=== PATIENT | male | born 1940 | race Caucasian/White ===

== ENCOUNTER → 2021-09-25 08:19 | Outpatient (CLI) | payer MEDICARE, OTHER, SELFPAY ==
[2021-09-25 20:52] LABS: COVID19 - ORCAS (NP or Nasal) Negative (Negative)
== END ==
PROVIDERS: PCP Family Medicine; Referring Provider Family Medicine; Visit Provider Family Medicine
DX: Z20.822 Contact with and (suspected) exposure to COVID-19 (principal)
CPT/HCPCS: C9803; U0003

== ENCOUNTER → 2022-04-23 12:13 | Outpatient (CLI) | payer MEDICARE, OTHER, SELFPAY ==
--- NOTE | 2022-04-23 12:14 | DI.US.S_ITS ---
PROCEDURE: US ABDOMEN LIMITED INDICATIONS: LEFT INGUINAL PAIN; HX RIGHT INGUINAL HERNIA TECHNIQUE: Real-time focused scanning was performed of the abdomen, with image documentation. Color Doppler was also utilized. COMPARISON: None. FINDINGS: At the area of clinical concern within the left inguinal region, there is an apparent hernia with bowel contents that measures 2.5 x 1.6 x 4.5 cm. The hernia orifice measures 1 cm. No abnormal vascularity can be seen. IMPRESSION: Likely bowel containing hernia at the site of clinical concern. Please consider a follow-up CT through the region for further evaluation. Please consider surgical referral. Dictated by: Abhilash Cronin M.D. on 04/23/2022 at 11:59 Approved by: Abhilash Cronin M.D. on 04/23/2022 at 12:00
== END ==
PROVIDERS: PCP Family Medicine; Referring Provider Physician Assistant Medical; Visit Provider Physician Assistant Medical
DX: R10.32 Left lower quadrant pain (principal)
CPT/HCPCS: 76705

== ENCOUNTER → 2022-05-12 11:17 | Outpatient (CLI) | payer MEDICARE, OTHER, SELFPAY ==
[2022-05-12 22:04] LABS: Prostate Specific Antigen < 0.064 ng/mL (0.10-4.00)
== END ==
PROVIDERS: PCP Family Medicine; Visit Provider Specialist
DX: R97.20 Elevated prostate specific antigen [PSA] (principal)
CPT/HCPCS: 84153

== ENCOUNTER → 2022-06-01 13:05 | Outpatient (CLI) | payer MEDICARE, OTHER, SELFPAY ==
[2022-06-01 20:04] LABS: BUN Creatinine Ratio 30.9 (6-22); Blood Urea Nitrogen 29 mg/dL (9-20); Calcium 9.4 mg/dL (8.4-10.2); Carbon Dioxide 28 mmol/L (22-32); Chloride 103 mmol/L (98-107); Estimated Glomerular Filt Rate > 60 mL/min (>60); Glucose 131 mg/dL (80-110); HEMOLYSIS < 15 (0-50); Potassium 4.4 mmol/L (3.4-5.1); Sodium 137 mmol/L (137-145)
== END ==
PROVIDERS: PCP Family Medicine; Visit Provider Specialist
DX: N40.0 Benign prostatic hyperplasia without lower urinary tract symptoms (principal)
CPT/HCPCS: 80048

== ENCOUNTER → 2022-06-03 13:04 | Outpatient (CLI) | payer MEDICARE, OTHER, SELFPAY ==
--- NOTE | 2022-06-03 13:06 | DI.CT.S_ITS ---
PROCEDURE: CT PELVIS W CON INDICATIONS: Possible inguinal hernia TECHNIQUE: After the administration of oral contrast and intravenous contrast, 5 mm thick sections acquired from the iliac crests to the symphysis. 5 mm thick coronal and sagittal reformats were acquired. For radiation dose reduction, the following was used: automated exposure control, adjustment of mA and/or kV according to patient size. COMPARISON: [facility], , US ABDOMEN LIMITED, 04/23/2022, 12:33. FINDINGS: Image quality: Excellent. Peritoneum and bowel: Contrast enhanced bowel loops demonstrate normal wall thickness and caliber. Normal appendix. No free fluid or air. Genitourinary: Large left bladder diverticulum, (2/34). Prostate gland is diminutive. Nodes and vessels: No iliac, pelvic, or inguinal adenopathy. Iliac vessels demonstrate normal size and enhancement. Tiny fat containing umbilical hernia. Bones: No suspicious bony lesions. Scoliosis. Moderate bilateral hip DJD. Miscellaneous: Suspect fat containing right inguinal hernia. Possible tiny fat containing left inguinal hernia. IMPRESSION: 1. Possible tiny fat containing left inguinal hernia. 2. Suspect fat containing right inguinal hernia. 3. Large left bladder diverticulum. Dictated by: Luis E Antonio M.D. on 06/03/2022 at 16:56 Approved by: Luis E Antonio M.D. on 06/03/2022 at 17:01
== END ==
PROVIDERS: PCP Family Medicine; Referring Provider Specialist; Visit Provider Specialist
DX: K40.90 Unilateral inguinal hernia, without obstruction or gangrene, not specified as recurrent (principal); R10.32 Left lower quadrant pain; N32.3 Diverticulum of bladder
CPT/HCPCS: 72193; Q9967

== ENCOUNTER → 2022-07-02 11:11 | Outpatient (CLI) | payer MEDICARE, OTHER, SELFPAY ==
[2022-07-02 19:31] LABS: Alanine Aminotransferase 16 IU/L (<50); Albumin 3.9 g/dL (3.5-5.0); Albumin Globulin Ratio 1.5 (1.0-2.8); Alkaline Phosphatase 59 U/L (38-126); Aspartate Aminotransferase 26 IU/L (17-59); BUN Creatinine Ratio 18.6 (6-22); Bilirubin Total 0.8 mg/dL (0.2-1.3); Blood Urea Nitrogen 18 mg/dL (9-20); Calcium 9.2 mg/dL (8.4-10.2); Carbon Dioxide 28 mmol/L (22-32); Chloride 101 mmol/L (98-107); Estimated Glomerular Filt Rate > 60 mL/min (>60); Globulin 2.6 g/dL (1.7-4.1); Glucose 99 mg/dL (80-110); HEMOLYSIS < 15 (0-50); Potassium 4.7 mmol/L (3.4-5.1); Sodium 137 mmol/L (137-145); Total Protein 6.5 g/dL (6.3-8.2)
== END ==
PROVIDERS: PCP Family Medicine; Visit Provider Physician Assistant Medical
DX: R73.9 Hyperglycemia, unspecified (principal); B35.1 Tinea unguium; M79.674 Pain in right toe(s)
CPT/HCPCS: 80053; 83036

== ENCOUNTER → 2023-01-18 13:44 | Outpatient (CLI) | payer MEDICARE, OTHER, SELFPAY ==
[2023-01-18 19:35] LABS: Add Manual Diff / Slide Review NO; Basophils Absolute Auto 0 /uL (0-100); Basophils Percent Auto 0.7 % (0-2); Eosinophils Absolute Auto 100 /uL (0-450); Eosinophils Percent Auto 2.1 % (2-4); Hematocrit 37.4 % (41-53); Hemoglobin 12.8 g/dL (13.5-17.5); Lymphocytes Absolute Auto 1500 /uL (1100-4500); Lymphocytes Percent Auto 26.4 % (25-40); Mean Corpuscular HGB Conc 34.3 % (30-36); Mean Corpuscular Hemoglobin 30.2 PG (26-34); Mean Corpuscular Volume 88.2 fL (80-100); Monocytes Absolute Auto 300 /uL (0-900); Monocytes Percent Auto 5.5 % (3-14); Neutrophils Absolute Auto 3600 /uL (1500-7000); Neutrophils Percent Auto 65.3 % (50-75); Platelet Count 251 X10^3/uL (150-400); Red Blood Cell Count 4.24 X10^6/uL (4.5-5.9); Red Cell Distribution Width 13.8 % (11.6-14.8); White Blood Cell Count 5.5 X10^3/uL (4.5-11.0)
[2023-01-18 19:46] LABS: Blood Urea Nitrogen 24 mg/dL (9-20); Calcium 9.1 mg/dL (8.4-10.2); Carbon Dioxide 27 mmol/L (22-32); Chloride 102 mmol/L (98-107); Estimated Glomerular Filt Rate > 60 mL/min (>60); Glucose 135 mg/dL (80-110); HEMOLYSIS < 15 (0-50); Potassium 4.5 mmol/L (3.4-5.1); Sodium 135 mmol/L (137-145)
[2023-01-18 19:51] LABS: INR 1.1 (0.9-1.3); Prothrombin Time 12.3 SECONDS (10.1-12.7)
== END ==
PROVIDERS: PCP Family Medicine; Visit Provider Family Medicine
DX: Z01.818 Encounter for other preprocedural examination (principal); K43.9 Ventral hernia without obstruction or gangrene
CPT/HCPCS: 80048; 85025; 85610

== ENCOUNTER → 2023-01-26 10:00 | Outpatient (CLI) | payer MEDICARE, OTHER, SELFPAY ==
[2023-01-29 15:08] LABS: Fecal Immunochemical Test Negative (Negative)
== END ==
PROVIDERS: PCP Family Medicine; Referring Provider Family Medicine; Visit Provider Family Medicine
DX: Z12.11 Encounter for screening for malignant neoplasm of colon (principal)
CPT/HCPCS: 82274

== ENCOUNTER 2023-02-16 11:00 | Day surgery (SDC) | payer MEDICARE, OTHER, SELFPAY ==
[2023-02-10 09:16] VITALS: BMI 25.5
[2023-02-16 11:09] VITALS: BMI 25.5
[2023-02-16 11:16] VITALS: BP 146/71; PULSE 58; RESP 17; TEMP 36.2; O2SAT 98
[2023-02-16] MEDS: LACTATED RINGERS 1,000 ML 120 ML IV (11:22)
--- NOTE | 2023-02-16 11:27 | P.HP_ITS ---
History of Present Illness History of Present Illness Date Patient Seen: 02/16/23 Time Patient Seen: 11:28 Chief complaint: Open Umbilical Hernia Repair w/mesh Narrative: Zach is here for his surgery. See office note from January for details. [facility] Medical History (Updated 02/16/23 @ 11:30 by David Alfredo MD) Benign prostatic hyperplasia Bladder diverticulum GERD (gastroesophageal reflux disease) Onychomycosis Sleep apnea (~2009) Surgical History (Updated 02/10/23 @ 09:20 by Genoveva Kendrick RN) H/O circumcision H/O hernia repair H/O transurethral resection of prostate (2013) History of urologic surgery (2016) Hx of tonsillectomy (1944) Family History Father Cancer Emphysema lung Social History marital status: number of children: 3 household members: spouse occupational status: other leisure activities: exercise Smoking Status: Never smoker alcohol intake: current caffeine: Yes Meds Home Medications and Allergies Home Medications Medication Instructions Recorded Confirmed Type ginkgo biloba 40 mg tablet 40 mg PO DAILY 05/13/22 02/16/23 History multivitamin 1 tab PO DAILY 05/13/22 02/16/23 History vit C 50 mg-E 15 unit-zinc cit 4.5 2 tab PO DAILY 05/13/22 02/16/23 History mg-lutein 2.5 mg-zeaxan chew tablet (OcAetel.inc (Droppy) [facility]) Allergies Allergy/AdvReac Type Severity Reaction Status Date / Time No Known Drug Allergies Allergy Verified 02/16/23 11:07 Exam Vital Signs (past 8 hours): - 02/16/23 11:16 Temperature 97.2 F L Pulse Rate 58 L Respiratory Rate 17 Blood Pressure 146/71 H Pulse Oximetry 98 Oxygen Delivery Method Room Air Oxygen Delivery Method Room Air Narrative Exam Narrative: There is a 1 cm reducible supraumbilical hernia Const General: healthy appearing Resp Effort & Inspection: normal respiratory effort Assessment & Plan Assessment and plan (1) Epigastric hernia: Status: Acute Plan Zach is here for his hernia repair. We reviewed the risks and benefits and he would like to proceed.
[2023-02-16] MEDS: CEFAZOLIN 2 GM/100 ML PREMIX 100 ML IV (11:47)
--- NOTE | 2023-02-16 12:02 | SUR.OPER ---
Supine on padded OR bed, head on pillow, arms secured on padded arm boards at <90 degrees abduction, legs uncrossed, safety belt at thigh, tape over blanket over lower legs.
[2023-02-16] MEDS: BUPIVACAINE 0.5% (PF) 30 ML, EPINEPHrine 0.15 MG INJ (12:08)
--- NOTE | 2023-02-16 12:17 | P.OP_ITS ---
Operative Date/Time/Diagnoses Date of procedure: 02/16/23 Time of procedure: 12:17 Pre-op diagnosis: Epigastric hernia Post-op diagnosis: same Procedure & Clinicians Procedure: Open epigastric hernia repair with mesh Same procedure as scheduled: Yes Surgeon: David Alfredo Operative Notes Procedure in detail: Ancef was administered. The patient was brought to the operating room, placed on the table in the supine position and general endotracheal anesthesia was induced. The abdomen was prepped and draped in the usual fashion. A time-out was performed. A 5 cm transverse incision was made just above the umbilicus. Dissection was carried down to the hernia and some preperitoneal fat was amputated with Bovie cautery and the stump allowed to fall back into the abdomen. The fascia was then closed with multiple interrupted 0 Ethibond sutures. The subcutaneous adipose tissue was cleared off of the anterior sheath circumferentially about 2 cm in each direction. A piece of polypropylene mesh was trimmed to fit over the fascial closure and secured with Tisseel. Once the Tisseel was dried the subcutaneous adipose tissue was closed with interrupted 3- 0 Vicryl sutures. The skin was closed with multiple interrupted 3-0 Vicryl dermal sutures followed by a running 4 Monocryl subcuticular closure. Dermabond and an abdominal binder was applied. Post-operative Disposition: PACU
[2023-02-16 12:30] VITALS: BP 141/69; PULSE 79; RESP 11; TEMP 36; O2SAT 95
[2023-02-16 12:34] VITALS: BP 131/67; PULSE 75; RESP 11; O2SAT 95
[2023-02-16 12:39] VITALS: BP 128/68; PULSE 74; RESP 15; O2SAT 95
[2023-02-16 12:45] VITALS: BP 139/71; PULSE 66; RESP 16; O2SAT 96
== END 2023-02-16 13:09 | disposition home or self-care (01) ==
PROVIDERS: PCP Family Medicine; Referring Provider Surgery; Visit Provider Surgery
PROC: (CPT 49593; principal; 2023-02-16 11:15)
DX: K43.9 Ventral hernia without obstruction or gangrene (principal)
CPT/HCPCS: 49593; J0171; J0690; J1100; J2405; J2704; J3010

== ENCOUNTER → 2024-06-13 09:34 | Outpatient (CLI) | payer MEDICARE, OTHER, SELFPAY ==
[2024-06-13 19:35] LABS: Add Manual Diff / Slide Review NO; Basophils Absolute Auto 0 /uL (0-100); Basophils Percent Auto 0.8 % (0-2); Eosinophils Absolute Auto 200 /uL (0-450); Hematocrit 36.8 % (41-53); Hemoglobin 12.6 g/dL (13.5-17.5); Lymphocytes Absolute Auto 1500 /uL (1100-4500); Mean Corpuscular HGB Conc 34.3 % (30-36); Mean Corpuscular Hemoglobin 30.5 PG (26-34); Monocytes Absolute Auto 400 /uL (0-900); Monocytes Percent Auto 6.1 % (3-14); Neutrophils Absolute Auto 3700 /uL (1500-7000); Neutrophils Percent Auto 64.1 % (50-75); Platelet Count 285 X10^3/uL (150-400); Red Blood Cell Count 4.13 X10^6/uL (4.5-5.9); Red Cell Distribution Width 13.5 % (11.6-14.8); White Blood Cell Count 5.8 X10^3/uL (4.5-11.0)
[2024-06-13 19:40] LABS: Alanine Aminotransferase 16 IU/L (<50); Albumin 3.6 g/dL (3.5-5.0); Albumin Globulin Ratio 1.3 (1.0-2.8); Alkaline Phosphatase 72 U/L (38-126); Aspartate Aminotransferase 25 IU/L (17-59); BUN Creatinine Ratio 24.7 (6-22); Bilirubin Total 0.5 mg/dL (0.2-1.3); Blood Urea Nitrogen 20 mg/dL (9-20); Calcium 9.3 mg/dL (8.4-10.2); Carbon Dioxide 28 mmol/L (22-32); Chloride 102 mmol/L (98-107); Cholesterol 181 mg/dL (140-199); Estimated Glomerular Filt Rate > 60 mL/min (>60); Globulin 2.7 g/dL (1.7-4.1); Glucose 103 mg/dL (80-110); HDL Cholesterol 56 mg/dL (40-60); HEMOLYSIS < 15 (0-50); LDL Cholesterol Calculated 112 mg/dL (<100); Potassium 4.8 mmol/L (3.4-5.1); Sodium 134 mmol/L (137-145); Total Protein 6.3 g/dL (6.3-8.2); Triglycerides 67 mg/dL (35-150)
[2024-06-13 20:24] LABS: Hemoglobin A1C% w Est Avg Glu 6.2 % (4.0-6.0)
== END ==
PROVIDERS: PCP Family Medicine; Visit Provider Family Medicine
DX: R73.9 Hyperglycemia, unspecified (principal); Z13.6 Encounter for screening for cardiovascular disorders; R05.9 Cough, unspecified; R06.09 Other forms of dyspnea
CPT/HCPCS: 80053; 80061; 83036; 85025

== ENCOUNTER → 2025-08-08 09:48 | Outpatient (CLI) | payer MEDICARE, OTHER, SELFPAY ==
[2025-08-08 19:33] LABS: Cholesterol 203 mg/dL (140-199); Glucose 98 mg/dL (70-99); HDL Cholesterol 75 mg/dL (40-60); Triglycerides 48 mg/dL (35-150)
[2025-08-09 15:35] LABS: Hep C Virus Ab w/Reflex Quant NEGATIVE s/c (NEGATIVE)
== END ==
PROVIDERS: PCP Family Medicine; Visit Provider Family Medicine
DX: Z13.6 Encounter for screening for cardiovascular disorders (principal); Z13.1 Encounter for screening for diabetes mellitus; Z11.59 Encounter for screening for other viral diseases
CPT/HCPCS: 80061; 82947; 86803